=== PATIENT | male | born 1970 | race Asian ===

== ENCOUNTER 2019-06-26 10:11 | Day surgery (SDC) | payer OTHER ==
[2019-06-25 14:00] VITALS: BMI 33.0
[2019-06-26 11:44] VITALS: TEMP 98.6
[2019-06-29 09:05] VITALS: BP 128/81; PULSE 76
--- NOTE | 2019-06-29 16:52 | PATH ---
Surgical Pathology Report Patient Name: HOWARD LA [facility]. Rec. #: [id number] /Age/Gender: 1970 (Age: 48) / M Account: [id number] Location: [facility]-ENDOSCOPY Taken: 06/26/2019 Received: 06/26/2019 Reported: 06/29/2019 Physicians: Ellie Liu M.D. Specimen(s) Received A: DUODENAL BULB B: ANTRUM C: RIGHT COLONPOLYP Clinical History Anemia Postoperative diagnosis: Atrophic gastritis, colon polyps Final Diagnosis A. SECOND PORTION DUODENUM AND DUODENUM BULB, BIOPSY: DUODENUM MUCOSA WITH HETEROTOPIC GASTRIC MUCOSA WITH CHRONIC INFLAMMATION. NO HISTOLOGIC EVIDENCE OF INTRAEPITHELIAL LYMPHOCYTOSIS. B. ANTRUM, BIOPSY: GASTRIC MUCOSA WITH MILD CHRONIC GASTRITIS. IMMUNOSTAIN FOR H. PYLORI IS NEGATIVE. NEGATIVE FOR INTESTINAL METAPLASIA. C. RIGHT COLON POLYP, BIOPSY: COLONIC MUCOSA WITH REACTIVE LYMPHOID AGGREGATE AND FOCAL SURFACE HYPERPLASTIC CHANGE. Electronically Signed Solis Acosta M.D. Gross Description A. Received in formalin, labeled "biopsy second portion of duodenum and duodenal bulb" are 5 restrepo, irregular portions of soft tissue ranging from 0.3-0.4 cm. in greatest dimension. The specimens are submitted in toto in one cassette. B. Received in formalin, labeled "biopsy antrum" are 4 restrepo, irregular portions of soft tissue ranging from 0.2-0.6 cm. in greatest dimension. The specimens are submitted in toto in one cassette. C. Received in formalin, labeled "biopsy right colon polyp" are 2 restrepo, irregular portions of soft tissue measuring 0.2 and 0.4 cm. in greatest dimension. The specimens are submitted in toto in one cassette. /06/26/2019 saudi06/26/2019
== END 2019-06-26 12:40 | disposition home or self-care (01) ==
LOC: JASU-ENDO 10:11
PROVIDERS: ATTEND Internal Medicine Gastroenterology
PROC: 0DB68ZZ Excision of Stomach, Via Natural or Artificial Opening Endoscopic (ICD-10-PCS; 2019-06-26)
PROC: 0DBK8ZX Excision of Ascending Colon, Via Natural or Artificial Opening Endoscopic, Diagnostic (ICD-10-PCS; principal; 2019-06-26 10:45)
DX: D64.9 Anemia, unspecified (principal); D12.2 Benign neoplasm of ascending colon; K64.8 Other hemorrhoids; K29.50 Unspecified chronic gastritis without bleeding
CPT/HCPCS: 88305-TC; 88342-TC